=== PATIENT | female | born 1950 | race Caucasian/White ===

== ENCOUNTER → 2017-10-18 | Outpatient (CLI) | payer OTHER ==
[~2017-10-18] MED LIST: AMLO10TA2 PO; CALCTAB32 PO; COEN200C PO; COEN400C; FISHCAP4 PO; GEMF600T PO; LOSA25TA; LOSA50TA PO; METF500T PO; METO-393 PO; OMEP20CA2 PO; VITA-142 PO; VITA200C3 PO; VITA500T83 PO; VITACAP7 PO; ZINC220T PO
[2017-10-18 09:30] LABS: BACTERIA, URINE RARE /hpf; BILIRUBIN, URINE NEG (NEG); BLOOD, URINE NEG (NEG); GLUCOSE,URINE NEG (NEG); KETONE, URINE NEG (NEG); NITRITE,URINE NEG (NEG); SQUAMOUS EPITHELIAL CELL URINE 2 /hpf (0-5); URINE COLOR YELLOW (YELLW/STRAW); URINE LEUKOCYTE ESTERASE MOD (NEG)
[2017-10-18 09:30] LABS: AUTOMATED NEUTROPHIL # 3.5 TH/MM3 (1.8-7.7); BASOPHIL # 0.1 TH/MM3 (0-0.2); BASOPHIL % 1.2 % (0.0-2.0); EOSINOPHIL # 0.3 TH/MM3 (0-0.4); EOSINOPHIL % 4.4 % (0.0-4.0); HEMATOCRIT 38.3 % (35.0-46.0); HEMOGLOBIN 13.1 GM/DL (11.6-15.3); LYMPH % 28.3 % (9.0-44.0); LYMPHOCYTE # 1.7 TH/MM3 (1.0-4.8); MEAN CORPUSCULAR HEMOGLOBIN 28.6 PG (27.0-34.0); MEAN CORPUSCULAR HGB CONC 34.1 % (32.0-36.0); MEAN PLATELET VOLUME 8.8 FL (7.0-11.0); MONO % 8.4 % (0.0-8.0); MONOCYTE # 0.5 TH/MM3 (0-0.9); NEUT % 57.7 % (16.0-70.0); PLATELET COUNT 247 TH/MM3 (150-450); RED BLOOD COUNT 4.56 MIL/MM3 (4.00-5.30); RED CELL DISTRIBUTION WIDTH 13.3 % (11.6-17.2); WHITE BLOOD COUNT 6.1 TH/MM3 (4.0-11.0)
[2017-10-18 09:36] LABS: PROTHROMBIN TIME - PATIENT 9.8 SEC (9.8-11.6)
[2017-10-18 09:51] LABS: ALBUMIN 3.9 GM/DL (3.4-5.0); AST (GOT) 15 U/L (15-37); BICARBONATE 24.3 MEQ/L (21.0-32.0); BLOOD UREA NITROGEN 28 MG/DL (7-18); CHLORIDE 105 MEQ/L (98-107); CREATININE 0.66 MG/DL (0.50-1.00); GLOMERULAR FILTRATION RATE 90 ML/MIN (>89); GLUCOSE,FASTING 160 MG/DL (74-99); SODIUM (NA) 140 MEQ/L (136-145)
[2017-10-18 09:54] LABS: ALKALINE PHOSPHATASE 67 U/L (45-117); ALT (GPT) 34 U/L (10-53); TOTAL BILIRUBIN ADULT 0.4 MG/DL (0.2-1.0); TOTAL PROTEIN 7.5 GM/DL (6.4-8.2)
--- NOTE | 2017-10-18 10:16 | RADRPT ---
EXAM DATE/TIME: 10/18/2017 09:17 [facility] COMPARISON: No previous studies available for comparison. INDICATIONS : Evaluate for pneumonia, pneumothorax, or communicable disease. Pre op lumbar fusion. MEDICAL HISTORY : Carcinoma, breast. SURGICAL HISTORY : Lumpectomy. ENCOUNTER: Initial ACUITY: 1 day PAIN SCORE: 0/10 LOCATION: Bilateral chest FINDINGS: PA and lateral views of the chest demonstrate the lungs to be symmetrically aerated without evidence of mass, infiltrate or effusion. The cardiomediastinal contours are unremarkable. Osseous structure s are intact. CONCLUSION: No acute disease. Oni Kinney MD on October 18, 2017 at 10:14 Board Certified Radiologist. This report was verified electronically.
--- NOTE | 2017-10-18 23:00 | EKG ---
Date Performed: 10/18/2017 Time Performed: 08:32:17 PTAGE: 67 years EKG: Sinus rhythm MINIMAL VOLTAGE CRITERIA FOR LVH, CONSIDER NORMAL VARIANT BORDERLINE ECG PREVIOUS TRACING : 04/02/2008 11.55 Since the previous tracing, no significant change noted DOCTOR: Tano Eldridge Interpretating Date/Time 10/18/2017 22:59:15
== END ==
LOC: CPRE 08:02
PROVIDERS: ATTEND Neurological Surgery
DX: Z01.810 Encounter for preprocedural cardiovascular examination (principal); Z01.812 Encounter for preprocedural laboratory examination; Z01.818 Encounter for other preprocedural examination; M43.10 Spondylolisthesis, site unspecified; M51.36 Other intervertebral disc degeneration, lumbar region; R94.31 Abnormal electrocardiogram [ECG] [EKG]
CPT/HCPCS: 36415; 71046; 80053; 81001; 85025; 85610; 85730; 87640; 87641; 93005

== ENCOUNTER 2017-10-27 08:30 | Inpatient (IN) | payer OTHER, MEDICARE ==
[~2017-10-27] VITALS: Ht 162.6 cm; Wt 75.5 kg
[~2017-10-27 08:30] MED LIST changes: -COEN400C; -LOSA25TA; -VITA200C3 PO
[2017-10-31] MEDS ORDERED: POVIDONE IODINE 5% (ANTISEPSIS KIT) 4 APPLICATIONS EACH NARE PRN (11:45)
[2017-10-31] MEDS ORDERED: INSULIN HUMAN REGULAR 1,000 UNITS/10 ML VIAL SQ PRN (11:45)
[2017-10-31] MEDS ORDERED: CHLORHEXIDINE GLUCONATE 2 % 1 PACK (2 CLOTHS) TOPICAL PRN (11:45)
[2017-10-31] MEDS ORDERED: LACTATED RINGER'S 1000 ML IV PRN (11:45)
[2017-10-31] MEDS ORDERED: SODIUM CHLORID 0.9% 500 ML IV PRN (11:45)
[2017-10-31] MEDS ORDERED: METOPROLOL TARTRATE 25 MG TAB PO PRN (11:45)
[2017-10-31] MEDS ORDERED: ePHEDrine/NS 25 MG/5 ML SYRINGE IV ONE (12:00)
[2017-10-31] MEDS ORDERED: LACTATED RINGER'S 1000 ML INJ 2,000 ML IV ONE (12:00)
[2017-10-31] MEDS ORDERED: ONDANSETRON HCL 4 MG/2 ML VIAL IV ONE (12:00)
[2017-10-31] MEDS ORDERED: ROCURONIUM INJ 50 MG/5 ML SYRINGE IV PUSH ONE (12:00)
[2017-10-31] MEDS ORDERED: PROPOFOL 200 MG/20 ML AMP IV ONE (12:00)
[2017-10-31] MEDS ORDERED: VANCOMYCIN 1 GM/200 ML PREMIX ON-CALL IV SCH (12:00)
[2017-10-31] MEDS ORDERED: DEXAMETHASONE SOD PHOS 4 MG/ML VIAL IV ONE (12:00)
[2017-10-31] MEDS: SODIUM CHLOR 0.9% 1000 ML INJ 1,000 ML IV SCH (12:00)
[2017-10-31] MEDS ORDERED: PHENYLEPH/NS 1000 MCG/10 ML SYR IV ONE (12:00)
[2017-10-31] MEDS ORDERED: PROPOFOL 500 MG/50 ML INJ 150 ML ONE (13:27)
[2017-10-31] MEDS ORDERED: ARTIFICIAL TEARS OPTH OINT 3.5 APPLIC/3.5 GM TUBO ONE (13:27)
[2017-10-31] MEDS ORDERED: THROMBIN (TOPICAL) 5,000 UNIT VIAL ONE (13:55)
[2017-10-31] MEDS ORDERED: ceFAZolin 2 GM PREMIX 50 ML ONE (13:55)
[2017-10-31] MEDS ORDERED: GENTAMICIN SULFATE 80 MG/2 ML VIAL ONE (13:56)
[2017-10-31] MEDS ORDERED: GELFOAM SIZE 100 ONE (13:56)
[2017-10-31] MEDS ORDERED: VANCOMYCIN HCL 1000 MG VIAL ONE ×2 (14:40→14:43)
[2017-10-31] MEDS ORDERED: SODIUM CHLOR 0.9% 250 ML INJ 250 ML ONE (14:41)
[2017-10-31] MEDS ORDERED: BUPIVACAINE HCL PF 0.5% 30 ML VIAL ONE (14:44)
[2017-10-31] MEDS ORDERED: diphenhydrAMINE HCL 50 MG/ML VIAL IV PUSH PRN (14:45)
[2017-10-31] MEDS ORDERED: DEXTROSE 50% IN WATER 50 ML VIAL(D50) IV PUSH PRN (14:45)
[2017-10-31] MEDS ORDERED: ACETAMINOPHEN 325 MG TAB PO PRN (14:45)
[2017-10-31] MEDS ORDERED: MORPHINE SULFATE 4 MG/ML INJ IV PUSH PRN (14:45)
[2017-10-31] MEDS ORDERED: NALOXONE HCL 0.4 MG/ML AMP IV PUSH PRN (14:45)
[2017-10-31] MEDS ORDERED: GLUCAGON 1 MG/ML VIAL OTHER PRN (14:45)
[2017-10-31] MEDS: NS + KCL 20 MEQ INJ 1,000 ML IV SCH (15:00)
[2017-10-31] MEDS ORDERED: MORPHINE SULFATE 2 MG/ML INJ IV PUSH PRN (15:15)
[2017-10-31] MEDS ORDERED: ACETAMINOPHEN 1000 MG/100 ML 100 ML IV ONE (16:19)
[2017-10-31] MEDS ORDERED: ceFAZolin INJ 1,000 MG VIAL IV ONE (16:30)
[2017-10-31] MEDS: INSULIN ASPART SUPPLEMENTAL SCALE SQ SCH ×2 (17:00→22:11)
[2017-10-31] MEDS: metFORMIN HCL 500 MG TAB PO SCH ×2 (18:00→21:00)
[2017-10-31] MEDS ORDERED: MIDAZOLAM HCL 2 MG/2 ML VIAL ONE (18:51)
[2017-10-31] MEDS ORDERED: DO NOT ADM ANY ANTICOAGULANT DRUGS PRN (19:24)
--- NOTE | 2017-10-31 19:44 | RADRPT ---
EXAM DATE/TIME: 10/31/2017 15:16 [facility] COMPARISON: No previous studies available for comparison. INDICATIONS : Fusion L4,L5 with screw and delilah placement. MEDICAL HISTORY : Carcinoma, breast. SURGICAL HISTORY : Lumpectomy. ENCOUNTER: Initial ACUITY: 1 day PAIN SCORE: Non-responsive. LOCATION: LUMBAR SPINE. FINDINGS: 2 images from the OR have been submitted. Transpedicular screws are seen at the L4 and L5 levels. The re is a stabilization device at the L4-5 disc level. There is grade 1 anterior spondylolisthesis of L 4 on L5. There is some sclerosis at the inferior aspect of L3. CONCLUSION: Successful placement of surgical hardware. Vasquez Garza MD on October 31, 2017 at 19:41 Board Certified Radiologist. This report was verified electronically.
[2017-10-31] MEDS: HYDROmorphone HCL PCA 6 MG/30 ML IV SCH (20:08)
[2017-10-31 21:00] VITALS: BP 142/63; PULSE 67; RESP 18; TEMP 97.6; O2SAT 98
[2017-10-31] MEDS ORDERED: NON-FORMULARY DRUG (B-Complex Vitamins (B Complex) 1 CAP) PO SCH (21:00)
--- NOTE | 2017-10-31 21:12 | PD.OP ---
Operative Report Date of Surgery: Oct 31, 2017 Preoperative Diagnosis: L4-5 spondylolisthesis Postoperative Diagnosis: L4-5 spondylolisthesis Procedure: 4-L5 right hemilaminectomy, interbody arthrodhesis using PEEK cage and autologous bone graft, L4-L5 instrumental fixation using transpedicular screws and rods, L4-L5 posterolateral fusion using autologous bone graft and demineralized bone matrix. Microsurgical dissection Anesthesia: General endotracheal Surgeon: Jarad Ballesteros Transcripter(s): Sierra Souza Operation and Findings: INDICATIONS FOR THE SURGICAL PROCEDURE Ms Butcher is a 67 year-old female who presented with intractable mechanical back pain and emely evidence of lower extremity radiculopathy and had severe degenerative disk disease with a massive recurrent disk hernistion causing severe neural copression. She failed maximum nonsurgical management including multiple modalities of conservative treatment as well as pain management interventions by an interventional pain specialist. A surgical decompression and arthrodhesis were indicated as a last resort. The [id number] details of the procedure, indications, alternatives, risks and potential complications were fully discussed with the patient. The patient fully understood. All the questions were answered. No guarantees were given. The patient voiced requesting the procedure and provided informed consents. The patient was offered the alternative of delaying the procedure and continuing with nonsurgical management. DETAILS OF THE SURGICAL PROCEDURE Prior to the procedure, the surgical incision was marked in the preoperative surgical holding room, and the procedure, risks, and potential complications revisited with the patient. Placement of electrodes for intraoperative neurophysiological monitoring was completed. The patient was taken to the operative room, and following induction of general anesthesia, endotracheal intubation was performed. A Sterling catheter, bilateral ARA hose and sequential compression devices were placed and kept throughout the procedure. The patient was positioned prone, over a Jose Angel table over a bolsters. All pressure in the preoperative surgical holding room points were carefully padded with eggcrate and gel mattress. The eyes were tapped shut after ointment was applied by the anesthesiologist to prevent corneal abrasion. A Toy hugger was placed over the expossed lower body to maintain control of the core body temperature. The electrophysiological team placed the needles and electrodes in their proper location and baseline SSEP's and EMG potentials were registered. The entrance to each pedicles was marked using a C arm. The lumbar region was prepped and draped in the usual sterile fashion. The surgical procedure was performed in several steps as follow: SURGICAL APPROACH Once the patient was positioned, a localizing cross-table lateral x-ray was performed with a C-arm. Two paramedian small incisions were outlined on the skin approximately 3cm from the midline. The skin incisions were made with a # 10 blade. Small bleeders were controlled with the cautery. The dissection was then carried out into deper planes and through the thoracolumbar fascia with a Bovie. The intermuscular septum was identified and the myscles were blunted dissected along the septum. The facets and transverse process of L4 and L5 were exposed and the proper anatomical landmarks were identidied. A microsurgical self-retaining retractor was placed on the incision, and a localizing lateralizing cross-table x-ray was performed with an instrument underneath a lamina of the lumbar spine. INSTRUMENTAL FIXATION At this point in the procedure, placement of bilateral transpedicular screws was necessary for stabilization of the spine. Initially, the entry point for the screw was selected anatomically at the junction of the facet, with the transverse process, and the pars interarticularis at L4 and L5. This was started with a Giamshetti needle followed by the use of a estrella wire. A tap was used to create the threads for the screws. Finally bilateral transpedicular screws were carefully placed bilaterally at L4, and L5 under fluoroscopic visualization. An appropriate purchase was achieved with all screws. The position of each screw was assessed anatomically with an AP, lateral , oblique Xrays. An intraoperative scan view of the spine was then performed using the iso-centric c-arm. Each screw was then assessed electrophysiologically stimulating each screw with a nerve stimulator. SURGICAL DECOMPRESSION AND DISCECTOMY There was significant mass effect with compression of the neural structures. In order to relieve neural compression, it was necessary to perform a decompressive laminectomy, with decompression of the spinal canal and bilateral lateral recesses. Note that the scope of such decompression was significantly more extensive than the minimal exposure necessary to perform an interbody fusion, as there was extreme facet arthropathy with near complete collapse of the disk spaces and severe stenosis cause by the hyperthrophic joint facets. At this point of the procedure the operative microscope was draped in the usual sterile fashion and brought to the field. The rest of the surgical procedure was performed using microdissection technique with the exception of the closure. Under the operating microscope, a decompressive laminectomy was carried out at L4-5 as follow: The laminae, base of the spinous processes and facets were carefully drilled exposing the ligamentum flavum. The facets were abnormal with severe facet arthropathy, vacuum facets, and mass effect over the neural structures. A broad disk protusion was contributing to compression of the neural structures and exiting L5 nerve root. A near complete facetectomy was necessary resulting in further mechanical instability. The ligamentum flavum appeared hypertrophic, resulting on mass effect on the dorsal surface of the neural structures. The superior free border of the ligamentum flavum was elevated with a ligament dissector and the ligamentum flavum was removed with a 3 and 4 mm Kerrison forceps. The ligament was very adherent to the dural sac and during the dissection, ans extreme care was taken during the dissection. The exiting nerve roots were identified, and a wide foraminotomy was performed with a Kerrison in their trajectory towards the neural foramina at both levels. Epidural veins located laterally to the dural sac were coagulated with the bipolar cautery, and then incised using microscissors. Gentle medial retraction of the dural sac allowed me to expose the disc space for the discectomy. Upon completion of the discectomy, an excellent decompression of the neural structures was achieved. INTERBODY ARTHRODHESIS Once the discectomy was completed, it was necessary to decorticate the endplates , in order to eliminate the cartilaginous endplate and to expose healthy bone appropriate to perform the interbody fusion. The endplates at L4-L5 were then thoroughly decorticated using increasing size bone jamie and ring curets, eliminating the cartilaginous fragments from both, the superior and inferior endplates. A disk space distractor was applied to the pedicle screws and gentle distraction was applied. This maneuver was assisted by the use of a disk distractor. Increased motility was noted at the disk, which was consistent with instability due to facet arthropathy. Once a thorough preparation of the disk space was achieved, the disk space was irrigated with antibiotic solution, and the interbody fusion was performed by carefully impacting an expandable PPEK cage filled with autologous iliac crest bone graft. The cage was cartefully expanded. A solid position of the cage with good purchase was achieved. The position of the cage was assessed anatomically with a probe and radiologically with the C-arm. POSTEROLATERAL FUSION The posterolateral fusion is a critical component to the procedure, to prevent future fatigue and failure of the instrumental fixation. Initially, the transverse processes of the vertebral bodies, lateral surface of the facets and the lateral gutters of the spine were carefully cleaned, eliminating all soft tissue and muscle attachments. The area was then irrigated with a large amount of antibiotic solution. Subsequently, the transverse processes, lateral surface of the facets, and lateral gutters of the spine were thoroughly decorticated using the TPS drill with a 5mm cutting kristine, exposing cancellous bone, in preparation for the posterolateral fusion.The incision was again irrigated with antibiotic solution. Then, the posterolateral fusion was then performed by carefully packing the lateral gutters of the spine at L4-L5 with autologous bone combined with demineralized bone matrix. I packed as much bone as possible. COMPLETION OF THE INSTRUMENTATION AND CLOSURE The rods were brought to the field, applied to all the screws, and the screw caps were sequentially applied. Compression was performed between the pedicle screws, and final tightening of the screws was completed using a torque wrench. The incision was again thoroughly irrigated with several liters of antibiotic solution, and hemostasis secured with the bipolar cautery. A Valsalva Maneuver performed by the anesthesiologist failed to show any evidence of cerebrospinal fluid leak or bleeding. The incision was then closed in planes. 0 Vicryl was used in an interrupted fashion to close the thoracolumbar fascia and the superficial fascia. The subcutaneous tissue was then approximated using 3-0 Vicryl in an interrupted fashion. Special care was taken to avoid space. The skin was then closed with 4-0 Vicryl in a running, subcuticular fashion. Dermabond was applied to the skin. Each plane of closure was irrigated with antibiotic solution. At the end of the procedure the sponge, needle and instrument counts were all correct. Estimated blood loss was 150 cc. No blood transfusion was given. The entire procedure was performed using continuous electrophysiological monitoring of the somatosensorial evoked potentials and EMG. The patient received prophylactic antibiotics. The patient was then extubated and transferred to the recovery room in stable condition. Jarad Ballesteros MD Oct 31, 2017 21:12
[2017-10-31] MEDS: PCA - TOTAL MG DILAUDID DELIVERED PER SHIFT SCH (22:00)
[2017-10-31] MEDS: GEMFIBROZIL 600 MG TAB PO SCH (22:09)
[2017-10-31] MEDS: CALCIUM/VITAMIN D 250 MG/125 U TAB PO SCH (22:09)
[2017-10-31 23:44] VITALS: O2SAT 95
[2017-11-01] VITALS (7 sets, daily range): BP systolic 120–159; BP diastolic 58–73; PULSE 60–71; RESP 18; TEMP 97–98.3; O2SAT 94–97
[2017-11-01] MEDS: NS + KCL 20 MEQ INJ 1,000 ML IV SCH ×3 (01:00→21:00)
[2017-11-01] MEDS: HYDROmorphone HCL PCA 6 MG/30 ML IV SCH (05:47)
[2017-11-01] MEDS: PCA - TOTAL MG DILAUDID DELIVERED PER SHIFT SCH ×3 (05:49→21:21)
[2017-11-01] MEDS: INSULIN ASPART SUPPLEMENTAL SCALE SQ SCH ×4 (08:00→21:00)
[2017-11-01] MEDS: GEMFIBROZIL 600 MG TAB PO SCH ×2 (08:21→21:19)
[2017-11-01] MEDS: METOPROLOL SUCCINATE 50 MG EXTENDED RELEASE TAB PO SCH (08:21)
[2017-11-01] MEDS: ZINC SULFATE 220 MG CAP PO SCH (08:21)
[2017-11-01] MEDS: CALCIUM/VITAMIN D 250 MG/125 U TAB PO SCH ×2 (08:21→21:19)
[2017-11-01] MEDS: PANTOPRAZOLE SOD 20 MG DELAYED RELEASE TAB PO SCH (08:21)
[2017-11-01] MEDS: LOSARTAN 50 MG TAB PO SCH (08:21)
[2017-11-01] MEDS: PANTOPRAZOLE SODIUM 40 MG VIAL IVP SCH (08:22)
[2017-11-01] MEDS: VITAMIN E 400 UNIT CAP PO SCH (08:22)
[2017-11-01] MEDS: metFORMIN HCL 500 MG TAB PO SCH ×3 (08:22→21:20)
[2017-11-01] MEDS ORDERED: NON-FORMULARY DRUG (Fish Oil-Cholecalciferol (Fish Oil + D3) 1 CAP) PO SCH (09:00)
[2017-11-01] MEDS ORDERED: NON-FORMULARY DRUG (Ascorbic Acid ER (Vitamin C ER) 500 MG) PO SCH (09:00)
[2017-11-01] MEDS ORDERED: COENZYME Q10 PO SCH (09:00)
[2017-11-01 09:49] LABS: AUTOMATED NEUTROPHIL # 8.5 TH/MM3 (1.8-7.7); BASOPHIL % 0.2 % (0.0-2.0); EOSINOPHIL % 0.1 % (0.0-4.0); HEMATOCRIT 30.9 % (35.0-46.0); HEMOGLOBIN 10.6 GM/DL (11.6-15.3); LYMPH % 10.3 % (9.0-44.0); LYMPHOCYTE # 1.1 TH/MM3 (1.0-4.8); MEAN CELL VOLUME 83.6 FL (80.0-100.0); MEAN CORPUSCULAR HEMOGLOBIN 28.8 PG (27.0-34.0); MEAN CORPUSCULAR HGB CONC 34.4 % (32.0-36.0); MEAN PLATELET VOLUME 8.7 FL (7.0-11.0); MONO % 8.4 % (0.0-8.0); MONOCYTE # 0.9 TH/MM3 (0-0.9); PLATELET COUNT 224 TH/MM3 (150-450); RED BLOOD COUNT 3.69 MIL/MM3 (4.00-5.30); RED CELL DISTRIBUTION WIDTH 13.4 % (11.6-17.2); WHITE BLOOD COUNT 10.4 TH/MM3 (4.0-11.0)
[2017-11-01 10:16] LABS: BICARBONATE 23.6 MEQ/L (21.0-32.0); CALCIUM 8.4 MG/DL (8.5-10.1); CREATININE 0.78 MG/DL (0.50-1.00)
[2017-11-01] MEDS: SODIUM CHLOR 0.9% 1000 ML INJ 1,000 ML IV SCH (10:18)
--- NOTE | 2017-11-01 11:55 | HHI.NSPN ---
(Janneth Meadows) Note Status Status: Progress Note (Janneth Meadows) Interval History Interval History Ms. Amor is a 67 y/o female s/p L4-L5 right hemilaminectomy, interbody arthrodesis using PEEK cage and autologous bone graft, L4-L5 instrumental fixation using transpedicular screws and rods, L4-L5 posterolateral fusion using autologous bone graft and demineralized bone matrix. Microsurgical dissection on Oct 31, 2017 for L4-5 spondylolisthesis. 11/01: doing well, surgical pain controlled on SKIVER COUNTER. reports lower extremity radicular pain improving, c/o numbness left toes. (Janneth Meadows) Labs, Micro, & Vital Signs Results Date Time Temp Pulse Resp B/P (MAP) Pulse Ox O2 Delivery O2 Flow Rate FiO2 11/01/17 09:24 96 21 11/01/17 08:18 98.3 65 18 121/58 (79) 96 11/01/17 06:21 98.3 60 18 159/68 (98) 95 11/01/17 05:49 18 11/01/17 00:00 98.1 60 18 120/69 (86) 97 10/31/17 23:44 95 10/31/17 22:00 16 10/31/17 21:00 97.6 67 18 142/63 (89) 98 10/31/17 20:30 66 12 146/75 (98) 99 Nasal Cannula 3 10/31/17 20:15 65 13 150/71 (97) 97 Nasal Cannula 3 10/31/17 20:08 14 10/31/17 20:00 69 12 158/69 (98) 99 Nasal Cannula 3 10/31/17 19:45 69 12 141/57 (85) 99 Nasal Cannula 3 10/31/17 19:30 98.9 71 12 142/85 (104) 99 Nasal Cannula 3 10/31/17 11:56 97.8 67 18 171/69 (103) 99 Constitutional Vital Signs Date Time Temp Pulse Resp B/P (MAP) Pulse Ox O2 Delivery O2 Flow Rate FiO2 11/01/17 09:24 96 21 11/01/17 08:18 98.3 65 18 121/58 (79) 96 11/01/17 06:21 98.3 60 18 159/68 (98) 95 11/01/17 05:49 18 11/01/17 00:00 98.1 60 18 120/69 (86) 97 10/31/17 23:44 95 10/31/17 22:00 16 10/31/17 21:00 97.6 67 18 142/63 (89) 98 10/31/17 20:30 66 12 146/75 (98) 99 Nasal Cannula 3 10/31/17 20:15 65 13 150/71 (97) 97 Nasal Cannula 3 10/31/17 20:08 14 10/31/17 20:00 69 12 158/69 (98) 99 Nasal Cannula 3 10/31/17 19:45 69 12 141/57 (85) 99 Nasal Cannula 3 10/31/17 19:30 98.9 71 12 142/85 (104) 99 Nasal Cannula 3 10/31/17 11:56 97.8 67 18 171/69 (103) 99 (Janneth Meadows) Physical Exam Ms. Amor is alert, awake and oriented to time, place and person. Speech is fluent. Cranial nerve examination: pupils to be equal, round and reactive to light. Extra-ocular movements are intact. Facial motor are normal and symmetrical. Neck is soft and supple Sensory examination is intact to light touch and pin prick in both the upper and lower extremities. Deep tendon reflexes are symmetrical in both upper and lower extremities. There is a bilateral plantar flexion response. Cerebellar examination is unremarkable, without deficits. (Janneth Meadows) Medications Current Medications Current Medications Medications (Trade) Dose Ordered Sig/Faby Route PRN Reason Start Time Stop Time Status Last Admin Dose Admin Vancomycin/Sodium Chloride 200 ml @ 200 mls/hr PHOTOGRAPHIC DOUBLE IV 10/31/17 12:00 11/03/17 11:59 Sodium Chloride 1,000 ml @ 30 mls/hr Q24H IV 10/31/17 12:00 Potassium Chloride/Sodium Chloride 1,000 ml @ 100 mls/hr Q10H IV 10/31/17 15:00 11/01/17 10:45 Cefazolin Sodium 2000 mg/Sodium Chloride 100 ml @ 100 mls/hr Q8H IV 10/31/17 22:00 11/01/17 14:59 11/01/17 05:50 Pantoprazole Sodium (Protonix Inj) 40 mg DAILY IVP 11/01/17 09:00 11/01/17 08:22 Morphine Sulfate (Morphine Inj) 2 mg Q2H PRN IV PUSH PAIN SCALE 1 TO 6 10/31/17 15:15 Morphine Sulfate (Morphine Inj) 4 mg Q2H PRN IV PUSH PAIN SCALE 7 TO 10 10/31/17 14:45 Acetaminophen (Tylenol) 650 mg Q4H PRN PO TEMPERATURE > 101.5 F 10/31/17 14:45 Naloxone HCl (Narcan Inj) 0.4 mg UNSCH PRN IV PUSH RESPIRATORY RATE LESS THAN 10 10/31/17 14:45 Diphenhydramine HCl (Benadryl Inj) 25 mg Q6H PRN IV PUSH ITCHING 10/31/17 14:45 Hydromorphone HCl (Dilaudid SKIVER COUNTER Inj) 6 mg UNSCH IV 10/31/17 14:45 11/01/17 05:47 SKIVER COUNTER Dosage Infused (Pha) 1 Q8HR .XX 10/31/17 22:00 11/01/17 05:49 Amlodipine Besylate (Norvasc) 10 mg DAILY PO 11/01/17 09:00 11/01/17 08:22 Gemfibrozil (Lopid) 600 mg BID PO 10/31/17 21:00 11/01/17 08:21 Losartan Potassium (Cozaar) 50 mg DAILY PO 11/01/17 09:00 11/01/17 08:21 Metformin HCl (Glucophage) 250 mg BIDPC PO 10/31/17 18:00 11/01/17 08:22 Metformin HCl (Glucophage) 500 mg HS PO 10/31/17 21:00 Zinc Sulfate (Zinc Sulfate) 220 mg DAILY PO 11/01/17 09:00 11/01/17 08:21 Calcium/Vitamin D (Oscal-D 250-125) 1 mg BID PO 10/31/17 21:00 11/01/17 08:21 Metoprolol Succinate (Toprol Xl) 200 mg DAILY PO 11/01/17 09:00 11/01/17 08:21 Pantoprazole Sodium (Protonix) 20 mg DAILY PO 11/01/17 09:00 11/01/17 08:21 Vitamin E (Vitamin E) 400 units DAILY PO 11/01/17 09:00 11/01/17 08:22 Dextrose (D50w (Vial) Inj) 50 ml UNSCH PRN IV PUSH HYPOGLYCEMIA-SEE COMMENTS 10/31/17 14:45 Glucagon (Glucagon Inj) 1 mg UNSCH PRN OTHER HYPOGLYCEMIA-SEE COMMENTS 10/31/17 14:45 Insulin Aspart (NovoLOG SUPPLEMENTAL SCALE) 1 ACHS SLIDING SCALE SQ 10/31/17 17:00 10/31/17 22:11 Miscellaneous Information ALL NURSING DEPARTME... UNSCH PRN .XX SEE LABEL COMMENTS 10/31/17 19:24 11/01/17 19:23 (Janneth Meadows) Attending Statement The exam, history, and the medical decision-making described in the above note were completed with the assistance of the mid-level provider. I reviewed and agree with the findings presented. I attest that I had a [id number] encounter with the patient on the same day, and personally performed and documented my assessment and findings in the medical record. (Jarad Ballesteros MD) Janneth Meadows Nov 01, 2017 11:55 Jarad Ballesteros MD Nov 01, 2017 17:16
--- NOTE | 2017-11-01 14:43 | PD.CONS ---
HPI Service [facility] Hospitalists Consult Requested By Dr Ballesteros Reason for Consult medical management Primary Care Physician Luz Mckeon MD Diagnoses: History of Present Illness The patient is a very pleasant 67 y/o female with a past medical history of hypertension, diabetes mellitus, hyperlipidemia who presented to same-day surgery for back surgery by Dr. Ballesteros. Hospitalist is consulted for medical management. Patient is s/p L4-L5 right hemilaminectomy, interbody arthrodesis using PEEK cage and autologous bone graft, L4-L5 instrumental fixation using transpedicular screws and rods, L4-L5 posterolateral fusion using autologous bone graft and demineralized bone matrix. Microsurgical dissection on Oct 31, 2017 for L4-5 spondylolisthesis. Doing well, surgical pain controlled on CHEESEMAKER. Reports lower extremity radicular pain improving, c/o numbness left toes. Review of Systems Except as stated in HPI: all other systems reviewed are Neg Past Family Social History Allergies: Coded Allergies: diatrizoate meglumine (Unverified Allergy, Severe, throat swelling, ) gadobenic acid (Unverified Allergy, Severe, throat swelling, 04/24/17) gadodiamide (Unverified Allergy, Severe, throat swelling, 04/24/17) gadoteridol (Unverified Allergy, Severe, throat swelling, 04/24/17) hydrochlorothiazide (Unverified Allergy, Severe, welts, 04/24/17) iodixanol (Unverified Allergy, Severe, throat swelling, 04/24/17) iohexol (Unverified Allergy, Severe, throat swelling, 04/24/17) Past Medical History Hypertension, hyperlipidemia, diabetes mellitus Past Surgical History Tonsillectomy, appendectomy, tubal ligation, hysterectomy, left breast lumpectomy, left thigh removal of melanoma Reported Medications Last Impressions Lumbar Spine X-Ray 10/31/17 0000 Signed Impressions: Service Date/Time: Tuesday, October 31, 2017 15:16 - CONCLUSION: Successful placement of surgical hardware. Vasquez Garza MD Family History Mother with brain aneurysm, back problem back and back surgeries Father diabetes, hypertension, hyperlipidemia, stroke Brother acute with history of hypertension Social History Denies alcohol use, illicit drug use or tobacco use. Physical Exam Vital Signs Vital Signs Date Time Temp Pulse Resp B/P (MAP) Pulse Ox O2 Delivery O2 Flow Rate FiO2 11/01/17 14:00 16 11/01/17 12:04 97.4 61 18 139/64 (89) 94 11/01/17 09:24 96 21 11/01/17 08:18 98.3 65 18 121/58 (79) 96 11/01/17 06:21 98.3 60 18 159/68 (98) 95 11/01/17 05:49 18 11/01/17 00:00 98.1 60 18 120/69 (86) 97 10/31/17 23:44 95 10/31/17 22:00 16 10/31/17 21:00 97.6 67 18 142/63 (89) 98 10/31/17 20:30 66 12 146/75 (98) 99 Nasal Cannula 3 10/31/17 20:15 65 13 150/71 (97) 97 Nasal Cannula 3 10/31/17 20:08 14 10/31/17 20:00 69 12 158/69 (98) 99 Nasal Cannula 3 10/31/17 19:45 69 12 141/57 (85) 99 Nasal Cannula 3 10/31/17 19:30 98.9 71 12 142/85 (104) 99 Nasal Cannula 3 Physical Exam GENERAL: This is a well-nourished, well-developed patient, in no apparent distress. SKIN: No rashes, ecchymoses or lesions. Cool and dry. HEAD: Atraumatic. Normocephalic. No temporal or scalp tenderness. EYES: Pupils equal round and reactive. Extraocular motions intact. No scleral icterus. No injection or drainage. ENT: Nose without bleeding, purulent drainage or septal hematoma. Throat without erythema, tonsillar hypertrophy or exudate. Uvula midline. Airway patent. NECK: Trachea midline. No JVD or lymphadenopathy. Supple, nontender, no meningeal signs. CARDIOVASCULAR: Regular rate and rhythm without murmurs, gallops, or rubs. RESPIRATORY: Clear to auscultation. Breath sounds equal bilaterally. No wheezes , rales, or rhonchi. GASTROINTESTINAL: Abdomen soft, non-tender, nondistended. No hepato-splenomegaly , or palpable masses. No guarding. MUSCULOSKELETAL: Dressing in the back place, CDI. Extremities without clubbing , cyanosis, or edema. No joint tenderness, effusion, or edema noted. No calf tenderness. Negative Homans sign bilaterally. Neurovascular intact. NEUROLOGICAL: Awake and alert. Cranial nerves II through XII intact. Motor and sensory grossly within normal limits. Five out of 5 muscle strength in all muscle groups. Normal speech. Laboratory Laboratory Tests Test 11/01/17 08:33 White Blood Count 10.4 Red Blood Count 3.69 Hemoglobin 10.6 Hematocrit 30.9 Mean Corpuscular Volume 83.6 Mean Corpuscular Hemoglobin 28.8 Mean Corpuscular Hemoglobin Concent 34.4 Red Cell Distribution Width 13.4 Platelet Count 224 Mean Platelet Volume 8.7 Neutrophils (%) (Auto) 81.0 Lymphocytes (%) (Auto) 10.3 Monocytes (%) (Auto) 8.4 Eosinophils (%) (Auto) 0.1 Basophils (%) (Auto) 0.2 Neutrophils # (Auto) 8.5 Lymphocytes # (Auto) 1.1 Monocytes # (Auto) 0.9 Eosinophils # (Auto) 0.0 Basophils # (Auto) 0.0 CBC Comment DIFF FINAL Differential Comment Blood Urea Nitrogen 19 Creatinine 0.78 Random Glucose 154 Calcium Level 8.4 Sodium Level 141 Potassium Level 4.3 Chloride Level 110 Carbon Dioxide Level 23.6 Anion Gap 7 Estimat Glomerular Filtration Rate 74 Result Diagram: 11/01/17 0833 11/01/17 0833 Imaging Last Impressions Lumbar Spine X-Ray 10/31/17 0000 Signed Impressions: Service Date/Time: Tuesday, October 31, 2017 15:16 - CONCLUSION: Successful placement of surgical hardware. Vasquez Garza MD Assessment and Plan Assessment and Plan 67-year-old female with L4-5 spondylolisthesis s/p L4-L5 right hemilaminectomy, interbody arthrodesis using PEEK cage and autologous bone graft, L4-L5 instrumental fixation using transpedicular screws and rods, L4-L5 posterolateral fusion using autologous bone graft and demineralized bone matrix. Microsurgical dissection on Oct 31, 2017 for L4-[address] Ballesteros Management per neurosurgeon Has TLSO Consult PT Hypertension. Restart home medications , BP controlled at this time. Monitor and adjust medications as needed. Diabetes mellitus type 2. Accu-Cheks insulin sliding scale. Can resume home medications at discharge Hyperlipidemia. Restart home medications DVT prophylaxis SCDs/teds Thank you for this consultation. Discussed Condition With Patient, nurse, family at bedside Chastity Maria MD Nov 01, 2017 14:43
[2017-11-01] MEDS: oxyCODONE/ACETAMINOPHEN 5 MG/325 MG TAB PO PRN (23:38)
[2017-11-02] VITALS (7 sets, daily range): BP systolic 118–149; BP diastolic 57–74; PULSE 69–81; RESP 18; TEMP 98–99.2; O2SAT 94–97
[2017-11-02] MEDS: NS + KCL 20 MEQ INJ 1,000 ML IV SCH (03:52)
[2017-11-02] MEDS: oxyCODONE/ACETAMINOPHEN 5 MG/325 MG TAB PO PRN (05:32)
[2017-11-02] MEDS: INSULIN ASPART SUPPLEMENTAL SCALE SQ SCH ×4 (08:00→22:16)
[2017-11-02] MEDS: PANTOPRAZOLE SODIUM 40 MG VIAL IVP SCH (09:00)
[2017-11-02] MEDS: VITAMIN E 400 UNIT CAP PO SCH (09:08)
[2017-11-02] MEDS: GEMFIBROZIL 600 MG TAB PO SCH ×2 (09:08→22:05)
[2017-11-02] MEDS: ZINC SULFATE 220 MG CAP PO SCH (09:08)
[2017-11-02] MEDS: PANTOPRAZOLE SOD 20 MG DELAYED RELEASE TAB PO SCH (09:09)
[2017-11-02] MEDS: CALCIUM/VITAMIN D 250 MG/125 U TAB PO SCH ×2 (09:09→22:06)
[2017-11-02] MEDS: metFORMIN HCL 500 MG TAB PO SCH ×3 (09:09→22:05)
[2017-11-02] MEDS: LOSARTAN 50 MG TAB PO SCH (09:09)
[2017-11-02] MEDS: METOPROLOL SUCCINATE 50 MG EXTENDED RELEASE TAB PO SCH (09:09)
[2017-11-02] MEDS: oxyCODONE/ACETAMINOPHEN 10 MG/325 MG TAB PO PRN ×3 (09:46→22:08)
[2017-11-02] MEDS ORDERED: WALKER WHEELS/F1 MIS (10:13)
--- NOTE | 2017-11-02 10:14 | HHI.FF ---
Face to Face Verification Diagnosis: (1) S/P lumbar spinal fusion Physical Therapy Order: Improve ambulation Home Health Nursing Order: Medical education Signs/symptoms of disease process Medication education-adverse effect Wound care and dressing changes (please see discharge orders for wound care) Nursing assessment with vital signs Instructions: Do not remove Optifoam dressing. Call the office if saturated. You may shower , recommend using antibacterial soap, and shower only, no soaking. Keep area clean and dry. Avoid excessive sweating. Return to office in 1 week for Optifoam dressing removal. After Optifoam dressing has been removed, you may continue to shower daily, no soaking. Do not pull or remove skin glue. Do not put alcohol on the wound as this may disrupt the glue. Avoid laying directly on wound for prolonged periods of time. If there are visible sutures or desiree, please call the office for removal, they will need to be removed approx 12-14 days from surgery date. Call Dr. Ballesteros office if there are signs of increased redness, warmth, drainage , fevers or chills. I have seen patient Yessenia Amor on 11/02/17. My clinical findings support the need for the requested home health care services because: Deconditioned w/ increased weakness High risk of falls I certify that my clinical findings support that this patient is homebound because: Post-op weakness Unsteady gait/balance Janneth Meadows Nov 02, 2017 10:14
[2017-11-02] MEDS: SODIUM CHLOR 0.9% 1000 ML INJ 1,000 ML IV SCH (12:00)
--- NOTE | 2017-11-02 15:08 | HHI.NSPN ---
(Janneth Meadows) Note Status Status: Progress Note (Janneth Meadows) Interval History Interval History Ms. Amor is a 67 y/o female s/p L4-L5 right hemilaminectomy, interbody arthrodesis using PEEK cage and autologous bone graft, L4-L5 instrumental fixation using transpedicular screws and rods, L4-L5 posterolateral fusion using autologous bone graft and demineralized bone matrix. Microsurgical dissection on Oct 31, 2017 for L4-5 spondylolisthesis. 11/01: doing well, surgical pain controlled on [employer]. reports lower extremity radicular pain improving, c/o numbness left toes. 11/02: not tolerating [employer] now dc'ed, pain controlled on percocet, still painful to go home today. radicular pain improving, persistent numbness in the left foot. (Janneth Meadows) Labs, Micro, & Vital Signs Results Date Time Temp Pulse Resp B/P (MAP) Pulse Ox O2 Delivery O2 Flow Rate FiO2 11/02/17 12:00 98.2 69 18 120/57 (78) 96 11/02/17 09:05 94 21 11/02/17 08:00 98.4 77 18 122/57 (78) 94 11/02/17 04:00 99.2 75 18 118/61 (80) 95 11/02/17 00:00 98.1 80 18 128/74 (92) 97 11/01/17 21:21 18 11/01/17 20:00 97.0 71 18 138/73 (94) 95 11/01/17 16:39 98.3 71 18 144/65 (91) 97 11/03/17 06:59 Output Total 5 ml Balance -5 ml Constitutional Vital Signs Date Time Temp Pulse Resp B/P (MAP) Pulse Ox O2 Delivery O2 Flow Rate FiO2 11/02/17 12:00 98.2 69 18 120/57 (78) 96 11/02/17 09:05 94 21 11/02/17 08:00 98.4 77 18 122/57 (78) 94 11/02/17 04:00 99.2 75 18 118/61 (80) 95 11/02/17 00:00 98.1 80 18 128/74 (92) 97 11/01/17 21:21 18 11/01/17 20:00 97.0 71 18 138/73 (94) 95 11/01/17 16:39 98.3 71 18 144/65 (91) 97 11/03/17 06:59 Output Total 5 ml Balance -5 ml (Janneth Meadows) Review of Systems Constitutional: DENIES: Fever, Chills Cardiovascular: DENIES: Chest pain Neurologic: COMPLAINS OF: Paresthesias (Janneth Meadows) Physical Exam Ms. Amor is alert, awake and oriented to time, place and person. Speech is fluent. Sitting up in chair with TLSO brace Cranial nerve examination: pupils to be equal, round and reactive to light. Extra-ocular movements are intact. Facial motor are normal and symmetrical. Neck is soft and supple Sensory examination is intact to light touch and pin prick in both the upper and lower extremities. Deep tendon reflexes are symmetrical in both upper and lower extremities. There is a bilateral plantar flexion response. Cerebellar examination is unremarkable, without deficits. (Janneth Meadows) Medications Current Medications Current Medications Medications (Trade) Dose Ordered Sig/Faby Route PRN Reason Start Time Stop Time Status Last Admin Dose Admin Vancomycin/Sodium Chloride 200 ml @ 200 mls/hr UNDER CUTTER IV 10/31/17 12:00 11/03/17 11:59 Sodium Chloride 1,000 ml @ 30 mls/hr Q24H IV 10/31/17 12:00 Potassium Chloride/Sodium Chloride 1,000 ml @ 100 mls/hr Q10H IV 10/31/17 15:00 11/01/17 10:45 Pantoprazole Sodium (Protonix Inj) 40 mg DAILY IVP 11/01/17 09:00 11/01/17 08:22 Morphine Sulfate (Morphine Inj) 2 mg Q2H PRN IV PUSH PAIN SCALE 1 TO 6 10/31/17 15:15 Morphine Sulfate (Morphine Inj) 4 mg Q2H PRN IV PUSH PAIN SCALE 7 TO 10 10/31/17 14:45 Acetaminophen (Tylenol) 650 mg Q4H PRN PO TEMPERATURE > 101.5 F 10/31/17 14:45 Amlodipine Besylate (Norvasc) 10 mg DAILY PO 11/01/17 09:00 11/02/17 09:09 Gemfibrozil (Lopid) 600 mg BID PO 10/31/17 21:00 11/02/17 09:08 Losartan Potassium (Cozaar) 50 mg DAILY PO 11/01/17 09:00 11/02/17 09:09 Metformin HCl (Glucophage) 250 mg BIDPC PO 10/31/17 18:00 11/02/17 09:09 Metformin HCl (Glucophage) 500 mg HS PO 10/31/17 21:00 11/01/17 21:20 Zinc Sulfate (Zinc Sulfate) 220 mg DAILY PO 11/01/17 09:00 11/02/17 09:08 Calcium/Vitamin D (Oscal-D 250-125) 1 mg BID PO 10/31/17 21:00 11/02/17 09:09 Metoprolol Succinate (Toprol Xl) 200 mg DAILY PO 11/01/17 09:00 11/02/17 09:09 Pantoprazole Sodium (Protonix) 20 mg DAILY PO 11/01/17 09:00 11/02/17 09:09 Vitamin E (Vitamin E) 400 units DAILY PO 11/01/17 09:00 11/02/17 09:08 Dextrose (D50w (Vial) Inj) 50 ml UNSCH PRN IV PUSH HYPOGLYCEMIA-SEE COMMENTS 10/31/17 14:45 Glucagon (Glucagon Inj) 1 mg UNSCH PRN OTHER HYPOGLYCEMIA-SEE COMMENTS 10/31/17 14:45 Insulin Aspart (NovoLOG SUPPLEMENTAL SCALE) 1 ACHS SLIDING SCALE SQ 10/31/17 17:00 11/02/17 12:07 Oxycodone/ Acetaminophen (Percocet 5-325 Mg) 1 tab Q4H PRN PO pain 1-5 11/01/17 23:15 11/02/17 05:32 Oxycodone/ Acetaminophen (Percocet 10-325 Mg) 1 tab Q4H PRN PO pain 6-10 11/01/17 23:15 11/02/17 09:46 (Janneth Meadows) Medical Decision Making MDM Remarks 67 y/o female s/p L4-L5 right hemilaminectomy, interbody arthrodesis using PEEK cage and autologous bone graft, L4-L5 instrumental fixation using transpedicular screws and rods, L4-L5 posterolateral fusion using autologous bone graft and demineralized bone matrix. Microsurgical dissection on Oct 31, 2017 for L4-5 spondylolisthesis. (Janneth Meadows) Plan Plan Remarks cont Percocet for pain control cont PT, TLSO when out of bed dc LEXI drain anticipate dc home tomorrow with C appreciate medical management assistance (Janneth Meadows) Attending Statement The exam, history, and the medical decision-making described in the above note were completed with the assistance of the mid-level provider. I reviewed and agree with the findings presented. I attest that I had a [id number] encounter with the patient on the same day, and personally performed and documented my assessment and findings in the medical record. (Jarad Ballesteros MD) Janneth Meadows Nov 02, 2017 15:08 Jarad Ballesteros MD Nov 03, 2017 20:02
--- NOTE | 2017-11-02 16:09 | HHI.PR ---
Subjective Remarks Seen earlier today. Appears in nad. Family at bedside. Patient has no pain at this tome. Had some pain at the surgical site with movement and with PT. Awaiting for a different TLSO. Says no nausea and she was able to eat better today. No fever or chills. Denies chest pain. Objective Vitals Vital Signs Date Time Temp Pulse Resp B/P (MAP) Pulse Ox O2 Delivery O2 Flow Rate FiO2 11/02/17 16:00 98.0 76 18 118/58 (78) 94 11/02/17 12:00 98.2 69 18 120/57 (78) 96 11/02/17 09:05 94 21 11/02/17 08:00 98.4 77 18 122/57 (78) 94 11/02/17 04:00 99.2 75 18 118/61 (80) 95 11/02/17 00:00 98.1 80 18 128/74 (92) 97 11/01/17 21:21 18 11/01/17 20:00 97.0 71 18 138/73 (94) 95 11/01/17 16:39 98.3 71 18 144/65 (91) 97 I/O 11/01/17 11/01/17 11/01/17 11/02/17 11/02/17 11/02/17 07:00 15:00 23:00 07:00 15:00 23:00 Intake Total 1052 ml 480 ml Output Total 1210 ml 20 ml 5 ml Balance -158 ml 480 ml -20 ml -5 ml Intake Oral 480 ml IV Total 1052 ml Output Urine Total 1150 ml Drainage Total 60 ml 20 ml 5 ml # Voids 3 4 2 Result Diagram: 11/01/17 0833 11/01/17 0833 Imaging Last Impressions Lumbar Spine X-Ray 10/31/17 0000 Signed Impressions: Service Date/Time: Tuesday, October 31, 2017 15:16 - CONCLUSION: Successful placement of surgical hardware. Vasquez Garza MD Objective Remarks GENERAL: This is a well-nourished, well-developed patient, in no apparent distress. CARDIOVASCULAR: Regular rate and rhythm without murmurs, gallops, or rubs. RESPIRATORY: Clear to auscultation. Breath sounds equal bilaterally. No wheezes , rales, or rhonchi. GASTROINTESTINAL: Abdomen soft, non-tender, nondistended. No hepato-splenomegaly , or palpable masses. No guarding. MUSCULOSKELETAL: Dressing in the back place, CDI. Extremities without clubbing , cyanosis, or edema. No joint tenderness, effusion, or edema noted. No calf tenderness. Negative Homans sign bilaterally. Neurovascular intact. NEUROLOGICAL: Awake and alert. Cranial nerves II through XII intact. Motor and sensory grossly within normal limits. Five out of 5 muscle strength in all muscle groups. Normal speech. A/P Assessment and Plan 67-year-old female with L4-5 spondylolisthesis s/p L4-L5 right hemilaminectomy, interbody arthrodesis using PEEK cage and autologous bone graft, L4-L5 instrumental fixation using transpedicular screws and rods, L4-L5 posterolateral fusion using autologous bone graft and demineralized bone matrix. Microsurgical dissection on Oct 31, 2017 for L4-[address] Ballesteros Management per neurosurgeon TLSO Consult PT Hypertension. Restart home medications , BP controlled at this time. Monitor and adjust medications as needed. Diabetes mellitus type 2. Accu-Cheks insulin sliding scale. Can resume home medications at discharge Hyperlipidemia. Restart home medications DVT prophylaxis SCDs/teds Thank you for this consultation. Discussed Condition With Patient, nurse, family at bedside, Dr Lesli Lanier DC tomorrow Chastity Maria MD Nov 02, 2017 16:08
[2017-11-03] VITALS: BP 94/55; PULSE 77; RESP 18; TEMP 98.6; O2SAT 97
[2017-11-03 04:00] VITALS: BP 122/60; PULSE 77; RESP 18; TEMP 99; O2SAT 99
[2017-11-03] MEDS: oxyCODONE/ACETAMINOPHEN 10 MG/325 MG TAB PO PRN ×2 (06:29→10:43)
[2017-11-03] MEDS: INSULIN ASPART SUPPLEMENTAL SCALE SQ SCH ×2 (07:37→11:59)
[2017-11-03] MEDS: PANTOPRAZOLE SODIUM 40 MG VIAL IVP SCH (07:39)
[2017-11-03] MEDS: GEMFIBROZIL 600 MG TAB PO SCH (07:46)
[2017-11-03] MEDS: metFORMIN HCL 500 MG TAB PO SCH (07:47)
[2017-11-03] MEDS: CALCIUM/VITAMIN D 250 MG/125 U TAB PO SCH (07:48)
[2017-11-03] MEDS: VITAMIN E 400 UNIT CAP PO SCH (07:48)
[2017-11-03] MEDS: PANTOPRAZOLE SOD 20 MG DELAYED RELEASE TAB PO SCH (07:49)
[2017-11-03] MEDS: METOPROLOL SUCCINATE 50 MG EXTENDED RELEASE TAB PO SCH (07:50)
[2017-11-03 08:00] VITALS: BP 105/61; PULSE 72; RESP 16; TEMP 97.5; O2SAT 93
[2017-11-03] MEDS: ZINC SULFATE 220 MG CAP PO SCH (08:19)
[2017-11-03] MEDS: LOSARTAN 50 MG TAB PO SCH (08:20)
[2017-11-03] MEDS ORDERED: OXYC1TAB36 PO (09:11)
--- NOTE | 2017-11-03 11:45 | HHI.PR ---
Subjective Remarks Awaiting for another TLSO. No fever or chills. No numbness in her legs. With back pain however feels improved today . Walking with PT and with the brace however needs a different brace No cp, sob, n/v/d/c. Objective Vitals Vital Signs Date Time Temp Pulse Resp B/P (MAP) Pulse Ox O2 Delivery O2 Flow Rate FiO2 11/03/17 08:00 97.5 72 16 105/61 (76) 93 11/03/17 04:00 99.0 77 18 122/60 (80) 99 11/03/17 00:00 98.6 77 18 94/55 (68) 97 11/02/17 20:00 98.7 81 18 149/70 (96) 97 11/02/17 16:00 98.0 76 18 118/58 (78) 94 11/02/17 12:00 98.2 69 18 120/57 (78) 96 I/O 11/02/17 11/02/17 11/02/17 11/03/17 11/03/17 11/03/17 07:00 15:00 23:00 07:00 15:00 23:00 Intake Total 700 ml Output Total 20 ml 5 ml Balance -20 ml -5 ml 700 ml Intake Oral 700 ml Drainage Total 20 ml 5 ml # Voids 5 3 # Bowel Movements 0 Result Diagram: 11/01/17 0833 11/01/17 0833 Imaging Last Impressions Lumbar Spine X-Ray 10/31/17 0000 Signed Impressions: Service Date/Time: Tuesday, October 31, 2017 15:16 - CONCLUSION: Successful placement of surgical hardware. Vasquez Garza MD Objective Remarks GENERAL: This is a well-nourished, well-developed patient, in no apparent distress. CARDIOVASCULAR: Regular rate and rhythm without murmurs, gallops, or rubs. RESPIRATORY: Clear to auscultation. Breath sounds equal bilaterally. No wheezes , rales, or rhonchi. GASTROINTESTINAL: Abdomen soft, non-tender, nondistended. No hepato-splenomegaly , or palpable masses. No guarding. MUSCULOSKELETAL: Dressing in the back place, CDI. Extremities without clubbing , cyanosis, or edema. No joint tenderness, effusion, or edema noted. No calf tenderness. Negative Homans sign bilaterally. Neurovascular intact. NEUROLOGICAL: Awake and alert. Cranial nerves II through XII intact. Motor and sensory grossly within normal limits. Five out of 5 muscle strength in all muscle groups. Normal speech. A/P Assessment and Plan 67-year-old female with L4-5 spondylolisthesis s/p L4-L5 right hemilaminectomy, interbody arthrodesis using PEEK cage and autologous bone graft, L4-L5 instrumental fixation using transpedicular screws and rods, L4-L5 posterolateral fusion using autologous bone graft and demineralized bone matrix. Microsurgical dissection on Oct 31, 2017 for L4-[address] Ballesteros Management per neurosurgeon TLSO Consult PT Hypertension. Restart home medications , BP controlled at this time. Monitor and adjust medications as needed. Diabetes mellitus type 2. Accu-Cheks insulin sliding scale. Can resume home medications at discharge Hyperlipidemia. Restart home medications DVT prophylaxis SCDs/teds Thank you for this consultation. Discussed Condition With Patient, nurse, family at bedside, Dr Ballesteros Medically stable, can be DC to follow up as OP with PCP and consultants. Chastity Maria MD Nov 03, 2017 11:45
[2017-11-03] MEDS: SODIUM CHLOR 0.9% 1000 ML INJ 1,000 ML IV SCH (11:59)
== END 2017-11-03 13:24 | disposition home health service (06) | DRG 460 ==
LOC: HSDI 10-31 11:07 → N05A 10-31 20:48 → UNDODISIN 11-03 13:21
PROVIDERS: ADMIT Neurological Surgery; ATTEND Neurological Surgery
PROC: 01NB0ZZ Release Lumbar Nerve, Open Approach (ICD-10-PCS; 2017-10-31)
PROC: 0SB20ZZ Excision of Lumbar Vertebral Disc, Open Approach (ICD-10-PCS; 2017-10-31)
PROC: 0SG00AJ Fusion of Lumbar Vertebral Joint with Interbody Fusion Device, Posterior Approach, Anterior Column, Open Approach (ICD-10-PCS; principal; 2017-10-31 14:12)
DX: M43.16 Spondylolisthesis, lumbar region (principal); I10 Essential (primary) hypertension; E11.9 Type 2 diabetes mellitus without complications; E78.5 Hyperlipidemia, unspecified; K21.9 Gastro-esophageal reflux disease without esophagitis; M48.061 Spinal stenosis, lumbar region without neurogenic claudication; M54.16 Radiculopathy, lumbar region; Z79.84 Long term (current) use of oral hypoglycemic drugs; Z85.820 Personal history of malignant melanoma of skin; Z88.8 Allergy status to other drugs, medicaments and biological substances
CPT/HCPCS: 72100; 76000; 80048; 82948; 85025; 86850; 86900; 86901; 94150; C1713; C9113; J0131; J0690; J1100; J1170; J1580; J1815; J2250; J2370; J2405; J3010; J3370; J3480; J7050; J7120; L0200; L0484